=== PATIENT | female | born 1990 | race Caucasian/White ===

== ENCOUNTER 2020-01-11 07:58 | Inpatient (IN) | payer OTHER ==
[~2020-01-11 07:58] MED LIST: Bupivacaine 0.25% 10 ML SDV ONE
[2020-01-11] MEDS ORDERED: Ondansetron 4 MG/2 ML SDV IVPUSH PRN ×2 (08:21→11:02)
[2020-01-11] MEDS ORDERED: Sodium Chloride 0.9% 10 ML Syringe FLUSH PRN (08:21)
[2020-01-11] MEDS ORDERED: Nalbuphine 10 MG/ML Syringe IVPUSH PRN (08:21)
[2020-01-11] MEDS ORDERED: Oxytocin/Lactated Ringers 10 UNIT/1,000 ML BAG IV SCH ×2 (08:30)
--- NOTE | 2020-01-11 09:07 | PCM.LDHP ---
<Melissa Shaffer - Last Filed: 01/11/20 10:41> L&D History of Present Illness - General Date of Service: 01/11/20 Admit Problem/Dx: Patient Status Order with Admit Dx/Problem 01/11/20 08:21 Patient Status [ADT] Routine Admission Diagnosis/Problem Admission Diagnosis/Problem - History of Present Illness Introduction:: Gerri is a 29-year-old 3 para 2002 white female presenting at 39-2/7 weeks gestational age with an PEDRO of 01/16/2020 for elective induction of TOLAC for . Cervix upon admission is 2cm, ?? effaced, very soft, mid position, and ?? station. Procedure of induction of labor, its risks, benefits, and alterna tives of care were discussed in detail with patient and her . They appear to understand and wish to proceed. Stem Mounter history: Age at onset of menarche, length of cycles, and duration of menses are unknown. Her PEDRO of 01/16/2020 was set by a certain last menstrual period of 04/11/2019. It is supported by 1 ultrasound done during the on 09/01/2019. Patient denies any abnormal Pap smears, STIs, or other abnormalities. Her previous pregnancies include: 1. Male infant born 12/27/2012 at 40 weeks gestation. . Length of labor and child's measurements are unknown. 2. Female born 11/20/2016 at 39 weeks gestation. section for breech position. 6lbs 2oz born in [place]. Child's name is Ita. course: Patient was first seen at [facility] on 11/09/2019 at 30-2/7 weeks gestational age after recently moving from [place]. Her most recent ultrasound on 09/01/2019 showed a viable at 19-5/7 weeks gestation. Ultrasound PEDRO correlated well with her LMP. She was seen on a regular basis throughout the . Vital signs remained stable and fundal height growth was appropriate. Her weight gain was from 170 to 209 pounds for a 39 pound increase. Patient's group B strep screen is negative. She has a history of Angelito and subsequent hypothyroidism for which she is on levothyroxine sodium 100mcg oral tabs daily. She has been on tabs and omeprazole 20mg oral capsules daily. She received a flu shot on 06/23/2019 and a Tdap on 11/09/2019. Her glucose tolerance test was elevated at the 1 hour evaluation but normal at the 3 hour evaluation. Laboratory testing in : Blood is O+ with a negative antibody screen. Hemoglobin was 12.5g/dL and platelets were 256,000 in the first trimester. Rubella titer showed immunity. RPR nonreactive. Hepatitis B surface antigen and HIV assays were both negative. Chlamydia and gonorrhea testing were both negative. TSH on 05/25/2019 was 0.926mIU/L. Second trimester hemoglobin was 11.3g/dL and platelets were 229,000. Her 3 hour GTT was normal with values of 85, 130, 142, 83 over the course of 4 evaluations. TSH was 0.445 and free T4 was 0.79 on 11/09/2019. Group B strep screen was negative. - Related Data Allergies/Adverse Reactions: Allergies Allergy/AdvReac Type Severity Reaction Status Date / Time No Known Allergies Allergy Verified 01/11/20 08:11 H&P Review of Systems - Review of Systems: Review Of Systems: See Below General: Reports: No Symptoms HEENT: Reports: No Symptoms Pulmonary: Reports: No Symptoms Cardiovascular: Reports: No Symptoms Gastrointestinal: Reports: No Symptoms Genitourinary: Reports: No Symptoms Skin: Reports: No Symptoms Neurological: Reports: No Symptoms L&D Exam - Exam Exam: See Below - Vital Signs Weight: 96.615 kg - Exam Psychiatric Exam Comments: In general, the patient is a well developed, well-nourished, and pleasant female of stated age in no acute distress. On last evaluation the patient's blood pressure was 116/72, weight was 209lbs, and FHR 144. Pre- BMI was 25.8. Height is 5 feet 8 inches. Skin is warm and dry without lesions. HEENT and neck are within normal limits. Lungs are clear to auscultation with good breath sound bilaterally. Cardiovascular exam show regular rate and rhythm with no murmurs. No peripheral edema. Abdomen is gravid with fundal height of 37.5. Baby in vertex presentation. Genital digital exam as defined above. Neurologic exam is grossly within normal limits. - Patient Data Result Diagrams: 01/11/20 08:49 Orders Last 24hrs: Active Orders 24 hr Category Date Time Status Patient Status [ADT] Routine ADT 01/11/20 08:21 Active Activity as Tolerated [RC] PFP Care 01/11/20 08:21 Active Communication Order [RC] ASDIRECTED Care 01/11/20 08:21 Active Heart Tones [RC] ASDIRECTED Care 01/11/20 08:22 Active Non Stress Test [RC] PER UNIT ROUTINE Care 01/11/20 08:21 Active Notify Provider [RC] PFP Care 01/11/20 08:21 Active Notify Provider [RC] PRN Care 01/11/20 08:21 Active Peripheral IV Care [RC] . DIRECTED Care 01/11/20 08:22 Active Pump Management, Intrathecal [RC] ASDIRECTED Care 01/11/20 08:23 Active Verify Patient Consent Obtain [RC] ASDIRECTED Care 01/11/20 08:39 Active Vital Signs [RC] PER UNIT ROUTINE Care 01/11/20 08:21 Active Regular Diet [DIET] Diet 01/11/20 Breakfast Active CBC WITH AUTO DIFF [HEME] Stat Lab 01/11/20 08:49 Received CORONAVIRUS COVID-19 PCR PHL Stat Lab 01/11/20 08:17 Ordered RAPID PLASMA REAGIN,RPR [CHEM] Routine Lab 01/11/20 08:49 Received TYPE AND SCREEN [BBK] Stat Lab 01/11/20 08:49 Received Lactated Ringers [Ringers, Lactated] 1,000 ml Med 01/11/20 08:30 Active IV ASDIRECTED Nalbuphine [Nubain] Med 01/11/20 08:21 Active 10 mg IVPUSH Q2H PRN Ondansetron [Zofran] Med 01/11/20 08:21 Active 4 mg IVPUSH Q4H PRN Oxytocin/Lactated Ringers [Pitocin in LR 10 Units/1,000 Med 01/11/20 08:30 Active ML] 10 unit in 1,000 ml IV .CONTINUOUS Oxytocin/Lactated Ringers [Pitocin in LR 10 Units/1,000 Med 01/11/20 08:30 Active ML] 10 unit in 1,000 ml IV TITRATE Sodium Chloride 0.9% [Saline Flush] Med 01/11/20 08:21 Active 10 ml FLUSH ASDIRECTED PRN Electronic Heart Tones Ext w TOCO [WOMSER] Oth 01/11/20 08:21 Ordered Routine Electronic Heart Tones Internal [WOMSER] Per Unit Oth 01/11/20 08:21 Ordered Routine Peripheral IV Insertion Adult [OM.PC] Routine Oth 01/11/20 08:21 Ordered Resuscitation Status Routine Resus Stat 01/11/20 08:21 Ordered Medication Orders Lactated Ringer's (Ringers, Lactated) 1,000 mls @ 100 mls/hr IV ASDIRECTED CAROL Oxytocin/Lactated Ringer's (Pitocin In Lr 10 Units/1,000 Ml) 10 unit in 1,000 mls @ 12 mls/hr IV TITRATE CAROL; Protocol Oxytocin/Lactated Ringer's (Pitocin In Lr 10 Units/1,000 Ml) 10 unit in 1,000 mls @ 500 mls/hr IV .CONTINUOUS CAROL Nalbuphine HCl (Nubain) 10 mg IVPUSH Q2H PRN PRN Reason: Pain Ondansetron HCl (Zofran) 4 mg IVPUSH Q4H PRN PRN Reason: Nausea/Vomiting Sodium Chloride (Saline Flush) 10 ml FLUSH ASDIRECTED PRN PRN Reason: Keep Vein Open Assessment/Plan Comment:: Assessment: 1. 39-2/7 week intrauterine admitted for elective induction of TOLAC for . 2. Risk factors of include: history of x1 3. Patient is considering epidural for pain control during labor and delivery Plan: 1. Induction of labor via AROM and Pitocin. Anticipate normal spontaneous vaginal delivery. 2. Epidural PRN per patient desire. 3. IV access 4. Routine labor care <Yvon Painter - Last Filed: 01/16/20 21:19> L&D History of Present Illness - General Admit Problem/Dx: Admission Diagnosis/Problem Admission Diagnosis/Problem H&P Review of Systems - Review of Systems: Review Of Systems: See Below L&D Exam - Exam Exam: See Below - Vital Signs Vital Signs: Last Vital Signs Temp 36.2 C 01/13/20 09:02 Pulse 89 01/13/20 09:02 Resp 16 01/13/20 09:02 BP 119/61 01/13/20 09:02 Pulse Ox 99 01/13/20 09:02 - Patient Data Result Diagrams: 01/11/20 08:49
[2020-01-11] MEDS: Lactated Ringers 1,000 ML IV SCH ×2 (10:34→14:19)
[2020-01-11] MEDS ORDERED: fentaNYL 100 MCG/2 ML SDV EPIDUR PRN (11:02)
[2020-01-11] MEDS ORDERED: ePHEDrine 50 MG/ML SDV IVPUSH PRN (11:02)
[2020-01-11] MEDS ORDERED: Phenylephrine 1 MG in Sodium Chloride 0.9% 10 ML IV PRN (11:15)
[2020-01-11] MEDS ORDERED: Bupivacaine/fentaNYL/NS 100 ML Bag EPIDUR SCH (11:15)
--- NOTE | 2020-01-11 11:16 | PCM.PREANE ---
Preanesthetic Assessment - Procedure Proposed Procedure: Laboring Epidural - Anesthesia/Transfusion/Family Hx Anesthesia History: Prior Anesthesia Without Reaction Family History of Anesthesia Reaction: No Transfusion History: No Prior Transfusion(s) Intubation History: Unknown - Review of Systems General: No Symptoms Pulmonary: No Symptoms Cardiovascular: No Symptoms Gastrointestinal: No Symptoms (GERD, ), Constipation (with ) Neurological: No Symptoms Other: Reports: None, Thyroid Problems (Hypothroid/rodolfo's), Sinus Problem (seasonal allergies) - Physical Assessment NPO Status Date: 01/11/20 NPO Status Time: 10:00 Vital Signs: Last Vital Signs Temp 36.0 C L 01/11/20 08:21 Pulse 81 01/11/20 09:01 Resp 18 01/11/20 08:21 BP 121/77 01/11/20 08:21 Pulse Ox 100 01/11/20 08:21 Height: 1.73 m Weight: 96.615 kg ASA Class: 2 Mental Status: Alert & Oriented x3 Airway Class: Mallampati = 2 Dentition: Reports: Normal Dentition, Caries Thyro-Mental Finger Breadths: 3 Mouth Opening Finger Breadths: 3 ROM/Head Extension: Full Lungs: Clear to Auscultation, Normal Respiratory Effort Cardiovascular: Regular Rate, Regular Rhythm, No Murmurs - Lab Values: Laboratory Last Values WBC 8.51 K/mm3 (3.98-10.04) 01/11/20 08:49 RBC 3.87 M/mm3 (3.98-5.22) L 01/11/20 08:49 Hgb 10.5 gm/dl (11.2-15.7) L 01/11/20 08:49 Hct 33.1 % (34.1-44.9) L 01/11/20 08:49 MCV 85.5 fl (79.4-94.8) 01/11/20 08:49 MCH 27.1 pg (25.6-32.2) 01/11/20 08:49 MCHC 31.7 g/dl (32.2-35.5) L 01/11/20 08:49 RDW Std Deviation 41.5 fL (36.4-46.3) 01/11/20 08:49 Plt Count 219 K/mm3 (182-369) 01/11/20 08:49 MPV 10.4 fl (9.4-12.3) 01/11/20 08:49 Neut % (Auto) 74.7 % (34.0-71.1) H 01/11/20 08:49 Lymph % (Auto) 16.7 % (19.3-51.7) L 01/11/20 08:49 Bent % (Auto) 7.2 % (4.7-12.5) 01/11/20 08:49 Eos % (Auto) 0.7 (0.7-5.8) 01/11/20 08:49 Baso % (Auto) 0.2 % (0.1-1.2) 01/11/20 08:49 Neut # (Auto) 6.36 K/mm3 (1.56-6.13) H 01/11/20 08:49 Lymph # (Auto) 1.42 K/mm3 (1.18-3.74) 01/11/20 08:49 Bent # (Auto) 0.61 K/mm3 (0.24-0.36) H 01/11/20 08:49 Eos # (Auto) 0.06 K/mm3 (0.04-0.36) 01/11/20 08:49 Baso # (Auto) 0.02 K/mm3 (0.01-0.08) 01/11/20 08:49 SARS Virus RNA (PCR) Negative (NEGATIVE) 01/11/20 08:17 Blood Type O POSITIVE 01/11/20 08:49 Gel Antibody Screen Negative 01/11/20 08:49 Above labs reviewed and noted and within acceptable ranges to proceed with epidural if desired. - Allergies Allergies/Adverse Reactions: Allergies Allergy/AdvReac Type Severity Reaction Status Date / Time No Known Allergies Allergy Verified 01/11/20 08:11 - Anesthesia Plan Pre-Op Medication Ordered: None - Acknowledgements Anesthesia Type Planned: Epidural Pt an Appropriate Candidate for the Planned Anesthesia: Yes Alternatives and Risks of Anesthesia Discussed w Pt/Guardian: Yes Pt/Guardian Understands and Agrees with Anesthesia Plan: Yes PreAnesthesia Questionnaire Genitourinary History: Reports: None [employer] History: Reports: - Past Surgical History Female Surgical History: Reports: Section - CURRENT (IN HOUSE) MEDS Current Meds: Current Medications Ephedrine Sulfate (Ephedrine Sulfate) 5 mg IVPUSH ASDIRECTED PRN PRN Reason: Hypotension Fentanyl (Sublimaze) 100 mcg EPIDUR Q3H PRN PRN Reason: Pain Fentanyl/Bupivacaine HCl (Fentanyl/Bupivacaine/Ns 2 Mcg-0.125% 100 Ml) 100 ml EPIDUR ASDIRECTED CAROL Lactated Ringer's (Ringers, Lactated) 1,000 mls @ 100 mls/hr IV ASDIRECTED CAROL Last Admin: 01/11/20 10:34 Dose: 100 mls/hr Documented by: Oxytocin/Lactated Ringer's (Pitocin In Lr 10 Units/1,000 Ml) 10 unit in 1,000 mls @ 12 mls/hr IV TITRATE CAROL; Protocol Last Admin: 01/11/20 10:34 Dose: 2 munits/min, 12 mls/hr Documented by: Oxytocin/Lactated Ringer's (Pitocin In Lr 10 Units/1,000 Ml) 10 unit in 1,000 mls @ 500 mls/hr IV .CONTINUOUS CAROL Phenylephrine HCl 1 mg/ Sodium (Chloride) 10.1 mls @ 1 mls/sec IV TITRATE PRN; Protocol PRN Reason: SEE COMMENT Nalbuphine HCl (Nubain) 10 mg IVPUSH Q2H PRN PRN Reason: Pain Ondansetron HCl (Zofran) 4 mg IVPUSH Q4H PRN PRN Reason: Nausea/Vomiting Ondansetron HCl (Zofran) 4 mg IVPUSH ONETIME PRN PRN Reason: Nausea/Vomiting Sodium Chloride (Saline Flush) 10 ml FLUSH ASDIRECTED PRN PRN Reason: Keep Vein Open
[2020-01-11] MEDS ORDERED: Acetaminophen 325 MG Tab PO PRN (13:39)
--- NOTE | 2020-01-11 18:06 | PCM.SN.2 ---
- Free Text/Narrative Note: Delivery note: Gerri is a 29-year-old 3 para 2002 white female presenting at 39-2/7 weeks gestational age with an PEDRO of 01/16/2020 for elective induction of TOLAC for . The procedure, risks, benefits, complications as far as separation uterine scar, compromise, bleeding, possible need for emergent section all discussed in detail with patient as were other potential risks. She appeared to understand, wish to proceed and signed a consent. Patient underwent artificial rupture membranes and induction with Pitocin augmentation ad somewhat later time. She slowly progressed to 4 cm and more rapidly progressed to complete cervical dilation. She had an epidural placed for labor analgesia. At 1537 hrs. on 01/11/2020 the patient pushed 2 contractions and delivered a viable, jerry, male with Apgars of 8 and 9, a weight of 3040 g (6 pounds 11.2 ounces), Apgars of 8 and 9 and a length of 20.0 inches. Baby was placed on mom's abdomen. Nose and mouth were bulb suctioned. Baby was dried with a warm blanket. Pitocin was increased to 500 mL per hour per protocol to facilitate increased uterine tone and decreased likelihood of bleeding. The umbilical cord was allowed to pulsate 2-3 minutes. It was then clamped and cut by the baby's father. The umbilical cord had 3 blood vessels present within it. Cord blood was obtained. Patient had a small second-degree perineal laceration which was repaired in routine fashion using 3-0 Monocryl suture in a running traditional stitch. Patient tolerated this well. Her labor analgesia analgesia provided good anesthesia for the perineal repair. The placenta delivered at 1541 hrs. in a Emmanuel presentation, appeared intact and complete and was discarded per patient desire. Estimated blood loss was 100 mL. Patient plans to breast-feed. Condition: Good.
[2020-01-11] MEDS ORDERED: Witch Hazel Medicated Pads 40/Jar TOP PRN (18:10)
[2020-01-11] MEDS: Ibuprofen 600 MG Tab PO PRN ×2 (18:18→22:07)
[2020-01-11] MEDS: Benzocaine/Menthol 20%-0.5% Spray 56 GM Canister TOP PRN (18:19)
[2020-01-11] MEDS: Acetaminophen 325 MG Tab PO PRN (20:18)
[2020-01-11] MEDS: Docusate Sodium 100 MG Cap PO PRN (22:06)
[2020-01-12] MEDS: Acetaminophen 325 MG Tab PO PRN ×4 (01:25→23:01)
[2020-01-12] MEDS: Ibuprofen 600 MG Tab PO PRN ×3 (04:39→20:12)
[2020-01-12] MEDS ORDERED: Levothyroxine 100 MCG Tab PO SCH (06:00)
[2020-01-12] MEDS: Benzocaine/Menthol 20%-0.5% Spray 56 GM Canister TOP PRN (12:27)
[2020-01-12] MEDS: Docusate Sodium 100 MG Cap PO PRN (23:01)
[2020-01-13] MEDS: Ibuprofen 600 MG Tab PO PRN ×2 (00:44→07:23)
[2020-01-13] MEDS: Acetaminophen 325 MG Tab PO PRN (04:21)
--- NOTE | 2020-01-13 06:22 | PCM.SN.2 ---
- Free Text/Narrative Note: note for 01/12/2020: note: day #1 Patient is doing well in the period. Minimal lochia, voiding well, ambulated without problems. Nursing without concerns. Patient is afebrile, vital signs are stable Abdomen is flat, soft, uterus is below the umbilicus and is firm and nontender. Legs are nontender. Assessment: recovery going well. Plan: Routine care. Patient be discharged home within the next 24-48 hours.
--- NOTE | 2020-01-13 06:26 | PCM.DCSUM1 ---
Discharge Summary - Hospital Course Free Text/Narrative:: Gerri is a 29-year-old 3 para 2002 white female presenting to the hospital on 01/11/2020 at 39-2/7 weeks gestational age with an PEDRO of 01/16/2020 for elective induction of TOLAC for . The procedure, risks, benefits, complications as far as separation uterine scar, compromise, bleeding, possible need for emergent section all discussed in detail with patient as were other potential risks. She appeared to understand, wish to proceed and signed a consent. Patient underwent artificial rupture membranes and induction with Pitocin augmentation ad somewhat later time. She slowly progressed to 4 cm and more rapidly progressed to complete cervical dilation. She had an epidural placed for labor analgesia. At 1537 hrs. on 01/11/2020 the patient pushed 2 contractions and delivered a viable, jerry, male infant with Apgars of 8 and 9, a weight of 3040 g (6 pounds 11.2 ounces), Apgars of 8 and 9 and a length of 20.0 inches. Baby was placed on mom's abdomen. Nose and mouth were bulb suctioned. Baby was dried with a warm blanket. Pitocin was increased to 500 mL per hour per protocol to facilitate increased uterine tone and decreased likelihood of bleeding. The umbilical cord was allowed to pulsate 2-3 minutes. It was then clamped and cut by the baby's father. The umbilical cord had 3 blood vessels present within it. Cord blood was obtained. Patient had a small second-degree perineal laceration which was repaired in r outine fashion using 3-0 Monocryl suture in a running traditional stitch. Patient tolerated this well. Her labor analgesia analgesia provided good anesthesia for the perineal repair. The placenta delivered at 1541 hrs. in a Emmanuel presentation, appeared intact and complete and was discarded per patient desire. Estimated blood loss was 100 mL. patient is doing very well. She is ambulating well, has had minimal lochia. She is nursing without problems and voiding without concerns. She is desiring discharge home. Final diagnosis: 1. 39-2/7 week intrauterine , successful Condition: Good. Diagnosis: Stroke: No - Discharge Data Discharge Date: 01/13/20 Discharge Disposition: Home, Self-Care 01 Condition: Good - Referral to Home Health Primary Care Physician: Yvon Painter MD - Patient Instructions Diet: Regular Diet as Tolerated (Nursing diet was increased calories and calcium as recommended) Activity: As Tolerated ([place] or tampons until bleeding resolves) Driving: May Drive Today Showering/Bathing: May Shower (May take a bath) Notify Provider of: Fever, Increased Pain, Swelling and Redness, Nausea and/or Vomiting - Discharge Plan Home Medications: Home Meds Levothyroxine [Synthroid] 1 tab PO DAILY 01/11/20 [History] Acetaminophen [Tylenol] 650 mg PO Q4H PRN tablet 01/13/20 [Rx] Ibuprofen [Motrin] 600 mg PO Q4H PRN tablet 01/13/20 [Rx] Referrals: Yvon Painter MD [Primary Care Provider] - (Return to [facility] weeks.) - Discharge Summary/Plan Comment DC Time >30 min.: No Discharge Summary/Plan Comment: Discharge instructions: 1. Discharge home 2. Diet, activity and follow-up discussed with patient. Recommend nursing diet with increased calories and calcium. 3. Precautions given concern increased pain, bleeding, temperature, signs/symptoms of DVT/PE. 4. Medications per home medication was printed, discussed with and given to the patient. 5. Return to clinic-Dr. Painter[facility] in 2 weeks. Diagnosis: Term -delivered Condition: Good - Patient Data Vitals - Most Recent: Last Vital Signs Temp 36.4 C 01/13/20 04:35 Pulse 70 01/13/20 04:35 Resp 14 01/13/20 04:35 BP 100/61 01/13/20 04:35 Pulse Ox 99 01/13/20 04:35 Weight - Most Recent: 96.615 kg I&O - Last 24 hours: Intake & Output 01/12/20 01/12/20 01/13/20 14:59 22:59 06:59 Intake Total 240 320 Balance 240 320 Lab Results - Last 24 hrs: Laboratory Results - last 24 hr 01/11/20 Range/Units 08:49 RPR Non-reactive (NONREACTIVE) Med Orders - Current: Current Medications Acetaminophen (Tylenol) 650 mg PO Q4H PRN PRN Reason: mild pain or fever Last Admin: 01/13/20 04:21 Dose: 650 mg Documented by: Benzocaine/Menthol (Dermoplast Pain Relief [place]) 0 gm TOP ASDIRECTED PRN PRN Reason: Perineal Comfort Measure Last Admin: 01/12/20 12:27 Dose: 1 can Documented by: Docusate Sodium (Colace) 100 mg PO BID PRN PRN Reason: Constipation Last Admin: 01/12/20 23:01 Dose: 100 mg Documented by: Ibuprofen (Motrin) 600 mg PO Q4H PRN PRN Reason: Mild pain or fever Last Admin: 01/13/20 00:44 Dose: 600 mg Documented by: Anamaria Urrutia ([place]) 1 pad TOP ASDIRECTED PRN PRN Reason: Perineal Comfort Measure Last Admin: 01/11/20 18:19 Dose: 1 container Documented by: Discontinued Medications Acetaminophen (Tylenol) 650 mg PO Q4H PRN PRN Reason: Headache/Pain Last Admin: 01/11/20 13:52 Dose: 650 mg Documented by: Bupivacaine HCl (Sensorcaine-Mpf 0.25%) 10 ml .ROUTE .[facility] Stop: 01/11/20 00:01 Ephedrine Sulfate (Ephedrine Sulfate) 5 mg IVPUSH ASDIRECTED PRN PRN Reason: Hypotension Fentanyl (Sublimaze) 100 mcg EPIDUR Q3H PRN PRN Reason: Pain Last Admin: 01/11/20 13:10 Dose: 100 mcg Documented by: Fentanyl/Bupivacaine HCl (Fentanyl/Bupivacaine/Ns 2 Mcg-0.125% 100 Ml) 100 ml EPIDUR ASDIRECTED CAROL Last Admin: 01/11/20 13:11 Dose: 100 ml Documented by: Lactated Ringer's (Ringers, Lactated) 1,000 mls @ 100 mls/hr IV ASDIRECTED CAROL Last Admin: 01/11/20 14:19 Dose: 100 mls/hr Documented by: Oxytocin/Lactated Ringer's (Pitocin In Lr 10 Units/1,000 Ml) 10 unit in 1,000 mls @ 12 mls/hr IV TITRATE CAROL; Protocol Last Titration: 01/11/20 15:40 Dose: 500 munits/min, 3,000 mls/hr Documented by: Oxytocin/Lactated Ringer's (Pitocin In Lr 10 Units/1,000 Ml) 10 unit in 1,000 mls @ 500 mls/hr IV .CONTINUOUS CAROL Phenylephrine HCl 1 mg/ Sodium (Chloride) 10.1 mls @ 1 mls/sec IV TITRATE PRN; Protocol PRN Reason: SEE COMMENT Levothyroxine Sodium (Synthroid) 100 mcg PO ACBREAKFAST CAROL Nalbuphine HCl (Nubain) 10 mg IVPUSH Q2H PRN PRN Reason: Pain Ondansetron HCl (Zofran) 4 mg IVPUSH Q4H PRN PRN Reason: Nausea/Vomiting Ondansetron HCl (Zofran) 4 mg IVPUSH ONETIME PRN PRN Reason: Nausea/Vomiting Sodium Chloride (Saline Flush) 10 ml FLUSH ASDIRECTED PRN PRN Reason: Keep Vein Open
== END 2020-01-13 11:18 | disposition home or self-care (01) | DRG 807 ==
LOC: JD.OB 07:58 → OBSVTOIN 15:37 → JD.OB 15:37
PROVIDERS: ADMIT Obstetrics & Gynecology; ATTEND Obstetrics & Gynecology
PROC: 10E0XZZ Delivery of Products of Conception, External Approach (ICD-10-PCS; principal; 2020-01-11)
PROC: 0KQM0ZZ Repair Perineum Muscle, Open Approach (ICD-10-PCS; 2020-01-11)
PROC: 10907ZC Drainage of Amniotic Fluid, Therapeutic from Products of Conception, Via Natural or Artificial Opening (ICD-10-PCS; 2020-01-11)
PROC: 3E0R3BZ Introduction of Anesthetic Agent into Spinal Canal, Percutaneous Approach (ICD-10-PCS; 2020-01-11)
PROC: 00HU33Z Insertion of Infusion Device into Spinal Canal, Percutaneous Approach (ICD-10-PCS; 2020-01-11)
DX: O34.211 Maternal care for low transverse scar from previous cesarean delivery (principal); Z37.0 Single live birth; Z3A.39 39 weeks gestation of pregnancy; O70.1 Second degree perineal laceration during delivery
CPT/HCPCS: 01967; 36415; 51702; 59025; 59409; 85025; 86592; 86850; 86900; 86901; A9270-GY; J2590; J3010; J3490; J7120; U0002

== ENCOUNTER 2021-07-01 05:15 | Inpatient (IN) | payer OTHER ==
--- NOTE | 2021-07-01 20:17 | PCM.LDHP ---
L&D History of Present Illness - General Date of Service: 07/01/21 Admit Problem/Dx: Admission Diagnosis/Problem Admission Diagnosis/Problem 07/01/21 20:05 Gerri is a 30-year-old 4 para 3-0-0-3 female who was admitted on the evening of 07/01/2021 at 39 weeks gestational age with an PEDRO of 07/08/2021 for elective induction of labor. Source of Information: Patient History Limitations: Reports: No Limitations - History of Present Illness Introduction:: Gerri is a 30-year-old 4 para 3-0-0-3 female who was admitted on the evening of 07/01/2021 at 39 weeks gestational age with an PEDRO of 07/08/2021 for elective induction of labor. The procedure, risk, benefits, alternatives of care including allowing for natural onset of labor all discussed in detail with patient. She appears understand and wishes to proceed. Plan is to proceed with Pitocin induction to be followed by AROM when possible. 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 Patient had menarche at approximately age 13. Cycles are somewhat irregular. PEDRO of 07/08/2021 was determined by An early ultrasound done at 6-1/7 weeks gestational age. That is supported by 2 follow-up ultrasounds. Patient denies any STIs. Denies any abnormal Pap smears. Her obstetric history includes the followin. 12/27/2012 at 40 weeks gestational age 2. Female infant born 11/20/2016 at 39 weeks gestational age by a section done for breech presentationepidural used for anesthesia-delivered in [place]. Child's name is Ita. 3. Male born 01/11/2000 6:20 hours of labor6 pound 12 ounce born via / with epidural analgesia. Born at [facility] in [place]. Child's name is Max. course: Ultrasound 6-1/7 weeks gestational age used for determination of final PEDRO of 07/08/2021. Patient was seen on a very regular basis throughout the . Her vital signs remained stable throughout the course. Her weight gain was from 197 pounds to 218.4 pounds for 21.4 pound increase. Fundal height growth has been appropriate. Patient desires an epidural in labor. She is group B strep negative. She is hypothyroid on medications and has been clinically euthyroid throughout the . Her thyroid medications are managed by Dr. Staton, endocrinology, at [facility] in [place], [place]. 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 She plans to breast-feed. Prequel noninvasive screen showed very low risk for trisomy 21, 18 and 13. Patient has received both doses of the med during the COVID-19 vaccine as of 02/28/2021. She had her influenza immunization on 05/01/2021 along with her Tdap on the same day. She is rubella immune. Laboratory testing: Blood is O+ with a negative antibody screen. First hemoglobin was 13.0 g/dL and platelets are 294,000. Rubella titer shows immunity. RPR is nonreactive. B surface antigen and HIV assays were negative. Media, gonorrhea and HCV antibody were all negative. TSH on 12/11/2020 was 2.0 milliunits/L. Second trimester labs showed hemoglobin of 11.7 g/dL which time she was started on ferrous sulfate. Platelets are 206,000. Diabetic screening test was 128. Group B strep screen 06/12/2021 was negative. Follow-up thyroid function studies on 06/21/2021 were within normal limits with the TSH of 0.645 and free T4 of 0.86. Allergies: None Medications: 1. Ferrous sulfate 325 mg p.o. daily 2. vitamins 1 daily 3. Levothyroxine sodium 100 mcg p.o. daily 4. Claritin tabs 10 mg p.o. daily as needed for allergies. 5. Probiotic oral tablet chewables daily. Past medical history: 1. 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 GERD on medications as needed 3. Infertility with treatment with letrozole. Past surgical history: 1. with her second child 2017 for breech presentation. She has successfully and desires to attempt trial of labor after section for attempt. Family history: Mother is alive and well but with hypertension. Father is alive and well. 2 brothers alive and well. 1 sister alive and well. Maternal grandmother is alive but with dementia. Maternal grandfather is age 75 from lung cancerwas a smoker. Paternal grandmother is alive but with hypertension. Paternal grandfather is alive with type 2 diabetes. The patient has no family history of cancer, bleeding or blood clotting disorders, anesthesia related issues or related concerns. 3 maternal aunts with Angelito's thyroiditis. 3 paternal aunts with polycystic ovarian syndrome. Paternal grandfather should be noted has a pacemaker. Social history: Patient is . She is a homemaker. She lives in [facility] with her family. Her is Sary. She does not use any significant muscle drugs or tobacco. Review of systems: Review of systems: In general patient has no complaints. Baby has been active and no significant contractions have been reported. Skin: Negative Lungs: No infectious symptoms or shortness of breath Cardiovascular: No chest pain or exercise intolerance Breasts: changes only. No lumps, changes in size, pain, dimpling, discharge or axillary or supraclavicular concerns. GI: Negative : Changes associated with . Musculoskeletal: Negative Neurological: Negative Physical exam: In general the patient is well-developed, well-nourished, pleasant female of stated age in no acute distress. Skin is warm dry without lesions. HEENT, neck and back within normal limits. Lungs are clear with good breath sounds in all lung akers. Cardiovascular exam shows regular and rhythm without murmurs. Breast exam deferred have been done at first visit and found to be normal. Is not repeated at this time. Patient does plan to breast-feed. Abdomen is gravid with last fundal height in clinic on 06/28/2021 at 39.5 cm. Baby in vertex presentation by Sae maneuvers and by cervical exam. Genital per digital evaluation on 06/28/2021 shows cervix to be 2 cm plus, 80% effaced, very soft, -3 station, mid position. Cephalic presentation confirmed Extremities shows trace edema bilateral lower extremities Neurological exam is grossly within normal limits. - Related Data Allergies/Adverse Reactions: Allergies Allergy/AdvReac Type Severity Reaction Status Date / Time No Known Allergies Allergy Verified 01/11/20 08:11 Home Medications: Home Meds Levothyroxine [Synthroid] 1 tab PO DAILY 01/11/20 [History] Acetaminophen [Tylenol] 650 mg PO Q4H PRN tablet 01/13/20 [Rx] Ibuprofen [Motrin] 600 mg PO Q4H PRN tablet 01/13/20 [Rx] Past Medical History Genitourinary History: Reports: None [employer] JOIST History: Reports: - Past Surgical History Female Surgical History: Reports: Section Social & Family History - Family History Family Medical History: No Pertinent Family History HEENT: Reports: None Cardiac: Reports: Hypertension Neurological: Reports: Dementia Endocrine/Metabolic: Reports: Hypothyroidism Hematologic: Reports: None Oncologic: Reports: Lung - Caffeine Use Caffeine Use: Reports: Soda Caffeine Use Comment: 1-2 per week H&P Review of Systems - Review of Systems: Review Of Systems: See Below L&D Exam - Exam Exam: See Below - Problem List (1) 39 weeks gestation of SNOMED Code(s): 45633410 ICD Code: Z3A.39 - 39 WEEKS GESTATION OF Status: Acute (2) Hypothyroidism SNOMED Code(s): 88104281 ICD Code: E03.9 - HYPOTHYROIDISM, UNSPECIFIED Status: Acute (3) History of Angelito thyroiditis SNOMED Code(s): 324212266 ICD Code: Z86.39 - PERSONAL HISTORY OF ENDO, NUTRITIONAL AND METABOLIC DISEASE Status: Acute (4) Previous section SNOMED Code(s): 777208841 ICD Code: Z98.891 - HISTORY OF UTERINE SCAR FROM PREVIOUS SURGERY Status: Acute (5) Anemia affecting SNOMED Code(s): 78555167 ICD Code: O99.019 - ANEMIA COMPLICATING , UNSPECIFIED TRIMESTER Status: Acute Problem List Initiated/Reviewed/Updated: Yes Assessment/Plan Comment:: 1Alondra Talley is a 30-year-old 4 para 3-0-0-3 female who was admitted on the evening of 07/01/2021 at 39 weeks gestational age with an PEDRO of 07/08/2021 for elective induction of labor Procedure, risk, benefits, limitations, follow- up and alternatives care including allowing for natural onset of labor discussed in detail with patient. She appears understand and wishes to proceed 2. Patient plans to breast-feed. 3. Group B strep screen is negative. 4. Risk factors include history of previous with a successful following, hypothyroidism on replacementclinically euthyroid 5. Patient has received both doses of Materna COVID-19 vaccine 6. Prequel noninvasive screen was low risk for trisomy 21, 18 and 13. 7. Patient is desiring an epidural in labor and delivery 8. History of Angelito's thyroiditis leading to her hypothyroidism. Plan: 1. Pitocin induction of labor followed by AROM when possible 2. Will electronically monitor heart tones and contractions. 3. Support breast-feeding decision 4. Epidural as desired by patient 5. Back precautions to include day of labs, alerting anesthesia and surgery that patient is in labor and delivery, appropriate consents for both trial of labor after section for an attempt at vaginal after section and repeat section if needed, near continuous monitoring. 6. DVT prophylaxis with SCDs when patient has received epidural 7. Labs upon admission consist of COVID-19 test, CBC, and screen and RPR per protocol. 8. Anticipate /.
[2021-07-01] MEDS ORDERED: Oxytocin/Lactated Ringers 10 UNIT/1,000 ML BAG IV SCH ×2 (21:00)
[2021-07-01] MEDS ORDERED: Sodium Chloride 0.9% 10 ML Syringe FLUSH PRN (21:00)
[2021-07-01] MEDS ORDERED: Nalbuphine 10 MG/1 ML Vial IVPUSH PRN (21:00)
[2021-07-01] MEDS: Lactated Ringers 1,000 ML IV SCH (22:06)
--- NOTE | 2021-07-01 22:12 | PCM.PREANE ---
Preanesthetic Assessment - Procedure Proposed Procedure: Labor epidural - Anesthesia/Transfusion/Family Hx Anesthesia History: Prior Anesthesia Without Reaction Family History of Anesthesia Reaction: No Transfusion History: No Prior Transfusion(s) Intubation History: Unknown - Review of Systems General: No Symptoms Pulmonary: Cough (chronic cough) Cardiovascular: No Symptoms Gastrointestinal: Abdominal Pain (uterine contractions) Neurological: No Symptoms Other: Reports: Thyroid Problems (hypothyroidism) - Physical Assessment NPO Status Date: 07/01/21 NPO Status Time: 16:00 Vital Signs: BP 124/65 HR 88 RR 16 95% RA 97.6 Height: 1.73 m Weight: 98.43 kg ASA Class: 2 Mental Status: Alert & Oriented x3 Airway Class: Mallampati = 2 Thyro-Mental Finger Breadths: 3 Mouth Opening Finger Breadths: 3 ROM/Head Extension: Full Lungs: Clear to Auscultation, Normal Respiratory Effort Cardiovascular: Regular Rate, Regular Rhythm, No Murmurs - Lab Values: Laboratory Last Values WBC 7.37 K/mm3 (3.98-10.04) 07/01/21 21:50 RBC 4.12 M/mm3 (3.98-5.22) 07/01/21 21:50 Hgb 11.9 gm/dl (11.2-15.7) 07/01/21 21:50 Hct 35.9 % (34.1-44.9) 07/01/21 21:50 MCV 87.1 fl (79.4-94.8) 07/01/21 21:50 MCH 28.9 pg (25.6-32.2) 07/01/21 21:50 MCHC 33.1 g/dl (32.2-35.5) 07/01/21 21:50 RDW Std Deviation 42.9 fL (36.4-46.3) 07/01/21 21:50 Plt Count 209 K/mm3 (182-369) 07/01/21 21:50 MPV 10.2 fl (9.4-12.3) 07/01/21 21:50 Neut % (Auto) 63.7 % (34.0-71.1) 07/01/21 21:50 Lymph % (Auto) 26.5 % (19.3-51.7) 07/01/21 21:50 [place] % (Auto) 8.1 % (4.7-12.5) 07/01/21 21:50 Eos % (Auto) 1.1 (0.7-5.8) 07/01/21 21:50 Baso % (Auto) 0.1 % (0.1-1.2) 07/01/21 21:50 Neut # (Auto) 4.69 K/mm3 (1.56-6.13) 07/01/21 21:50 Lymph # (Auto) 1.95 K/mm3 (1.18-3.74) 07/01/21 21:50 [place] # (Auto) 0.60 K/mm3 (0.24-0.36) H 07/01/21 21:50 Eos # (Auto) 0.08 K/mm3 (0.04-0.36) 07/01/21 21:50 Baso # (Auto) 0.01 K/mm3 (0.01-0.08) 07/01/21 21:50 - Allergies Allergies/Adverse Reactions: Allergies Allergy/AdvReac Type Severity Reaction Status Date / Time No Known Allergies Allergy Verified 01/11/20 08:11 - Acknowledgements Anesthesia Type Planned: Epidural Pt an Appropriate Candidate for the Planned Anesthesia: Yes Alternatives and Risks of Anesthesia Discussed w Pt/Guardian: Yes Pt/Guardian Understands and Agrees with Anesthesia Plan: Yes PreAnesthesia Questionnaire HEENT History: Reports: Impaired Vision Cardiovascular History: Reports: None Respiratory History: Reports: Bronchitis, Recurrent Gastrointestinal History: Reports: GERD Genitourinary History: Reports: None PLANT ENGINEER History: Reports: Musculoskeletal History: Reports: None Neurological History: Reports: None Psychiatric History: Reports: None Endocrine/Metabolic History: Reports: Hypothyroidism ([place]) Hematologic History: Reports: None Immunologic History: Reports: None Oncologic (Cancer) History: Reports: None Dermatologic History: Reports: None - Past Surgical History HEENT Surgical History: Reports: Oral Surgery Female Surgical History: Reports: Section - SUBSTANCE USE Tobacco Use Status *Q: Never Tobacco User Tobacco Use Within Last Twelve Months: No Second Hand Smoke Exposure: No Days Per Week of Alcohol Use: 0 Number of Drinks Per Day: 0 Total Drinks Per Week: 0 Recreational Drug Use History: No - HOME MEDS Home Medications: Home Meds Levothyroxine [Synthroid] 1 tab PO DAILY 01/11/20 [History] Acetaminophen [Tylenol] 650 mg PO Q4H PRN tablet 01/13/20 [Rx] Ibuprofen [Motrin] 600 mg PO Q4H PRN tablet 01/13/20 [Rx] - CURRENT (IN HOUSE) MEDS Current Meds: Current Medications Oxytocin/Lactated Ringer's (Pitocin In Lr 10 Units/1,000 Ml) 10 unit in 1,000 mls @ 100 mls/hr IV .CONTINUOUS CAROL Oxytocin/Lactated Ringer's (Pitocin In Lr 10 Units/1,000 Ml) 10 unit in 1,000 mls @ 12 mls/hr IV TITRATE CAROL; Protocol Lactated Ringer's (Ringers, Lactated) 1,000 mls @ 100 mls/hr IV ASDIRECTED CAROL Nalbuphine HCl (Nalbuphine 10 Mg/1 Ml Vial) 10 mg IVPUSH Q2H PRN PRN Reason: Pain Sodium Chloride (Sodium Chloride 0.9% 10 Ml Syringe) 10 ml FLUSH ASDIRECTED PRN PRN Reason: Keep Vein Open
[2021-07-01] MEDS ORDERED: fentaNYL 100 MCG/2 ML SDV EPIDUR PRN (22:28)
[2021-07-01] MEDS ORDERED: Bupivacaine/fentaNYL/NS 100 ML Bag EPIDUR PRN (22:28)
[2021-07-01] MEDS ORDERED: diphenhydrAMINE 50 MG/ML SDV IVPUSH PRN (22:28)
[2021-07-01] MEDS ORDERED: ePHEDrine 50 MG/ML SDV IVPUSH PRN (22:28)
[2021-07-02] MEDS ORDERED: Bupivacaine 0.25% 10 ML SDV ONE
[2021-07-02] MEDS: Lactated Ringers 1,000 ML IV SCH (03:18)
--- NOTE | 2021-07-02 05:40 | PCM.SN.2 ---
- Free Text/Narrative Note: Delivery note: Stage I: Gerri is a 30-year-old 4 now para 4-0-0-4 female who was admitted on the evening of 07/01/2021 at 39 and 0/7 weeks gestational age with an PEDRO of 07/08/2021 for elective induction of labor. Patient had a previous section done for breech presentation but had successfully . was discussed in detail with patient including risk, benefits, alternatives of care including repeat section. She appeared to understand, wish to proceed and signed consents. Preparatory measures were put in place such as having consent signed for trial of labor after section for an attempt at vaginal after section, preoperative labs were drawn, anesthesia and surgery were informed of the patient's labor, heart tones were near continuously monitored. Labor was initiated with Pitocin and at approximately 0330 hrs. on 07/02/2021 AROM with resultant clear amniotic fluid was accomplished. At that time patient was 5 cm, 100% effaced, -1 station, anterior and very soft. Cephalic presentation noted. heart tones were reassuring. Patient had had an epidural placed with good results. She progressed quickly to complete cervical dilation by approximately 0500 hrs. heart tones remained reassuring throughout the labor course. Stage II: Gerri delivered a viable, jerry, male infant with Apgars of 9 and 9, a weight of 3590g , (7 pounds, 15 ounces) and a length of 20.5 inches in a direct occiput anterior position. There is external restitution of the head. No nuchal cord was noted. The shoulders were then delivered gently with downward and upward traction. The baby is completely delivered and placed on mom's abdomen. Baby was dried with warm blanket. Nose and mouth were bulb suction. Pitocin was increased to 500 cc an hour to facilitate increase in uterine tone and decrease likelihood of bleeding. The cord was allowed to pulsate for approximately 3-4 minutes and then was clamped x2 and cut by the baby's father. Cord blood was obtained. The umbilical cord had 3 vessels. Stage III: The placenta delivered at 0521 hrs. in a Emmanuel presentation, it appeared intact and complete and was discarded per patient desire. Patient plans to breast-feed. Estimated blood loss was 100 cc. Condition: Good.
[2021-07-02] MEDS ORDERED: Levothyroxine 100 MCG Tab PO SCH ×2 (06:00→20:00)
[2021-07-02] MEDS ORDERED: Docusate Sodium 100 MG Cap PO PRN (07:43)
[2021-07-02] MEDS ORDERED: Benzocaine/Menthol 20%-0.5% Spray 78 GM Cannister TOP PRN (07:43)
[2021-07-02] MEDS ORDERED: Witch Hazel Medicated Pads 40/Jar TOP PRN (07:43)
[2021-07-02] MEDS: Ibuprofen 600 MG Tab PO PRN ×2 (09:00→18:20)
[2021-07-02] MEDS: Prenatal Multivitamin with Calcium/Folic Acid/Iron Tab PO SCH (09:01)
[2021-07-02] MEDS: Acetaminophen 325 MG Tab PO PRN ×2 (14:27→21:55)
[2021-07-02] MEDS ORDERED: Loratadine 10 MG Tab PO SCH (20:00)
[2021-07-03] MEDS: Ibuprofen 600 MG Tab PO PRN ×3 (00:21→12:42)
--- NOTE | 2021-07-03 07:17 | PCM.DCSUM1 ---
Discharge Summary - Hospital Course Free Text/Narrative:: Stage I: Gerri is a 30-year-old 4 now para 4-0-0-4 female who was admitted on the evening of 07/01/2021 at 39 and 0/7 weeks gestational age with an PEDRO of 07/08/2021 for elective induction of labor. Patient had a previous section done for breech presentation but had successfully . was discussed in detail with patient including risk, benefits, alternatives of care including repeat section. She appeared to understand, wish to proceed and signed consents. Preparatory measures were put in place such as having consent signed for trial of labor after section for an attempt at vaginal after section, preoperative labs were drawn, anesthesia and surgery were informed of the patient's labor, heart tones were near continuously monitored. Labor was initiated with Pitocin and at approximately 0330 hrs. on 07/02/2021 AROM with resultant clear amniotic fluid was accomplished. At that time patient was 5 cm, 100% effaced, -1 station, anterior and very soft. Cephalic presentation noted. heart tones were reassuring. Patient had had an epidural placed with good results. She progressed quickly to complete cervical dilation by approximately 0500 hrs. heart tones remained reassuring throughout the labor course. Stage II: Gerri delivered a viable, jerry, male infant with Apgars of 9 and 9, a weight of 3590g , (7 pounds, 15 ounces) and a length of 20.5 inches in a direct occiput anterior position. There is external restitution of the head. No nuchal cord was noted. The shoulders were then delivered gently with downward and upward traction. The baby is completely delivered and placed on mom's abdomen. Baby was dried with warm blanket. Nose and mouth were bulb suction. Pitocin was increased to 500 cc an hour to facilitate increase in uterine tone and decrease likelihood of bleeding. The cord was allowed to pulsate for approximately 3-4 minutes and then was clamped x2 and cut by the baby's father. Cord blood was obtained. The umbilical cord had 3 vessels. Stage III: The placenta delivered at 0521 hrs. in a Emmanuel presentation, it appeared intact and complete and was discarded per patient desire. Patient plans to breast-feed. Estimated blood loss was 100 cc. patient is doing very well. She is nursing without problems, has minimal lochia. She is ambulating well and has been voiding without concerns. She is desiring discharge home today. Discharge condition: Good. Diagnosis: Stroke: No - Discharge Data Discharge Date: 07/03/21 Discharge Disposition: Home, Self-Care 01 Condition: Good - Referral to Home Health Primary Care Physician: Yvon Painter MD - Discharge Diagnosis/Problem(s) (1) 39 weeks gestation of SNOMED Code(s): 68966139 ICD Code: Z3A.39 - 39 WEEKS GESTATION OF Status: Acute Current Visit: No (2) Hypothyroidism SNOMED Code(s): 44870730 ICD Code: E03.9 - HYPOTHYROIDISM, UNSPECIFIED Status: Acute Current Visit: No (3) History of Angelito thyroiditis SNOMED Code(s): 900364781 ICD Code: Z86.39 - PERSONAL HISTORY OF ENDO, NUTRITIONAL AND METABOLIC DISEASE Status: Acute Current Visit: No (4) Previous section SNOMED Code(s): 528599579 ICD Code: Z98.891 - HISTORY OF UTERINE SCAR FROM PREVIOUS SURGERY Status: Acute Current Visit: No (5) Anemia affecting SNOMED Code(s): 93441747 ICD Code: O99.019 - ANEMIA COMPLICATING , UNSPECIFIED TRIMESTER Status: Acute Current Visit: No - Patient Instructions Diet: Usual Diet as Tolerated (Nursing diet with increased calories and calcium is recommended) Activity: As Tolerated (No intercourse or tampons until bleeding resolves) Driving: May Drive Today Showering/Bathing: May Shower (May take a bath) Notify Provider of: Fever, Increased Pain, Swelling and Redness, Drainage - Discharge Plan Home Medications: Home Meds Levothyroxine [Synthroid] 1 tab PO DAILY 01/11/20 [History] Ferrous Sulfate 1 tab PO DAILY 07/01/21 [History] Lactobacillus Combination No.4 [Probiotic] 1 tab PO DAILY 07/01/21 [History] Omeprazole 1 tab PO DAILY 07/01/21 [History] Pnv No.95/Ferrous Fum/Folic AC [ Vitamins Tablet] 1 tab PO DAILY 07/01/21 [History] Acetaminophen [Tylenol] 650 mg PO Q4H PRN tablet 07/03/21 [Rx] Ibuprofen [Motrin] 600 mg PO Q4H PRN tablet 07/03/21 [Rx] Loratadine [Claritin] 10 mg PO 2000 tablet 07/03/21 [Rx] Referrals: Yvon Painter MD [Primary Care Provider] - (Return to [facility] weeks.) - Discharge Summary/Plan Comment DC Time >30 min.: No Total # of Minutes for Discharge Time: 10 Discharge Summary/Plan Comment: Discharge instructions: 1. Discharge home 2. Diet, activity and follow-up discussed with patient. Recommend nursing diet with increased calories and calcium. 3. Precautions given concern increased pain, bleeding, temperature, signs/symptoms of DVT/PE. 4. Medications per home medication was printed, discussed with and given to the patient. 5. Return to clinic-[facility]. Painter[facility] in 2 weeks. Diagnosis: Term -delivered Condition: Good - Patient Data Vitals - Most Recent: Last Vital Signs Temp 36.7 C 07/03/21 04:12 Pulse 80 07/03/21 04:12 Resp 13 07/03/21 04:12 BP 108/71 07/03/21 04:12 Pulse Ox 97 07/03/21 04:12 Weight - Most Recent: 98.43 kg I&O - Last 24 hours: Intake & Output 07/02/21 07/03/21 07/03/21 22:59 06:59 14:59 Intake Total 180 Balance 180 Lab Results - Last 24 hrs: Laboratory Results - last 24 hr 07/01/21 Range/Units 21:50 RPR Non-reactive (NONREACTIVE) Med Orders - Current: Current Medications Acetaminophen (Acetaminophen 325 Mg Tab) 650 mg PO Q4H PRN PRN Reason: mild pain or fever Last Admin: 07/02/21 21:55 Dose: 650 mg Documented by: Benzocaine/Menthol (Benzocaine/Menthol 20%-0.5% Allen 78 Gm Cannister) 0 gm TOP ASDIRECTED PRN PRN Reason: Perineal Comfort Measure Docusate Sodium (Docusate Sodium 100 Mg Cap) 100 mg PO BID PRN PRN Reason: Constipation Last Admin: 07/02/21 18:23 Dose: 100 mg Documented by: Ibuprofen (Ibuprofen 600 Mg Tab) 600 mg PO Q4H PRN PRN Reason: Mild pain or fever Last Admin: 07/03/21 04:42 Dose: 600 mg Documented by: Levothyroxine Sodium (Levothyroxine 100 Mcg Tab) 100 mcg PO [facility] Last Admin: 07/03/21 00:49 Dose: Not Given Documented by: Loratadine (Loratadine 10 Mg Tab) 10 mg PO [facility] Last Admin: 07/03/21 00:48 Dose: Not Given Documented by: Prenat Multivit/[place]/Iron/Folic Ac ( Multivitamin With Calcium/Folic Acid/Iron Tab) 1 each PO DAILY [facility] Last Admin: 07/02/21 09:01 Dose: Not Given Documented by: Anamaria Urrutia (Anamaria Urrutia Medicated Pads 40/Jar) 1 pad TOP ASDIRECTED PRN PRN Reason: Perineal Comfort Measure Discontinued Medications Bupivacaine HCl (Bupivacaine 0.25% 10 Ml Sdv) 10 ml .ROUTE .STK-MED ONE Stop: 07/02/21 00:01 Diphenhydramine HCl (Diphenhydramine 50 Mg/Ml Sdv) 25 mg IVPUSH Q6H PRN PRN Reason: pruritis Ephedrine Sulfate (Ephedrine 50 Mg/Ml Sdv) 5 mg IVPUSH ASDIRECTED PRN PRN Reason: Hypotension Fentanyl (Fentanyl 100 Mcg/2 Ml Sdv) 100 mcg EPIDUR Q3H PRN PRN Reason: Pain Last Admin: 07/02/21 02:47 Dose: 100 mcg Documented by: Fentanyl/Bupivacaine HCl (Bupivacaine/Fentanyl/Ns 100 Ml Bag) 100 ml EPIDUR ASDIRECTED PRN PRN Reason: Pain Last Admin: 07/02/21 02:48 Dose: 100 ml Documented by: Oxytocin/Lactated Ringer's (Pitocin In Lr 10 Units/1,000 Ml) 10 unit in 1,000 mls @ 100 mls/hr IV .CONTINUOUS CAROL Oxytocin/Lactated Ringer's (Pitocin In Lr 10 Units/1,000 Ml) 10 unit in 1,000 mls @ 12 mls/hr IV TITRATE CAROL; Protocol Last Titration: 07/02/21 04:21 Dose: 10 munits/min, 60 mls/hr Documented by: Lactated Ringer's (Ringers, Lactated) 1,000 mls @ 100 mls/hr IV ASDIRECTED CAROL Last Admin: 07/02/21 03:18 Dose: 100 mls/hr Documented by: Levothyroxine Sodium (Levothyroxine 100 Mcg Tab) 100 mcg PO ACBREAKFAST CAROL Last Admin: 07/02/21 07:53 Dose: Not Given Documented by: Nalbuphine HCl (Nalbuphine 10 Mg/1 Ml Vial) 10 mg IVPUSH Q2H PRN PRN Reason: Pain Sodium Chloride (Sodium Chloride 0.9% 10 Ml Syringe) 10 ml FLUSH ASDIRECTED PRN PRN Reason: Keep Vein Open
--- NOTE | 2021-07-03 07:49 | PCM48HPAN ---
Post Anesthesia Note - EVALUATION WITHIN 48HRS OF ANESTHETIC Vital Signs in Normal Range: Yes Patient Participated in Evaluation: Yes Respiratory Function Stable: Yes Airway Patent: Yes Cardiovascular Function Stable: Yes Hydration Status Stable: Yes Pain Control Satisfactory: Yes Nausea and Vomiting Control Satisfactory: Yes Mental Status Recovered: Yes Vital Signs: Last Vital Signs Temp 36.7 C 07/03/21 04:12 Pulse 80 07/03/21 04:12 Resp 13 07/03/21 04:12 BP 108/71 07/03/21 04:12 Pulse Ox 97 07/03/21 04:12
[2021-07-03] MEDS: Prenatal Multivitamin with Calcium/Folic Acid/Iron Tab PO SCH (09:00)
[2021-07-03] MEDS: Acetaminophen 325 MG Tab PO PRN (09:00)
== END 2021-07-03 13:10 | disposition home or self-care (01) | DRG 807 ==
LOC: JD.OB 05:15 → OBSVTOIN 07-02 05:15 → JD.OB 07-02 05:16
PROVIDERS: ADMIT Obstetrics & Gynecology; ATTEND Obstetrics & Gynecology
PROC: 10E0XZZ Delivery of Products of Conception, External Approach (ICD-10-PCS; principal; 2021-07-02)
PROC: 10907ZC Drainage of Amniotic Fluid, Therapeutic from Products of Conception, Via Natural or Artificial Opening (ICD-10-PCS; 2021-07-02)
PROC: 3E0R3BZ Introduction of Anesthetic Agent into Spinal Canal, Percutaneous Approach (ICD-10-PCS; 2021-07-02)
PROC: 00HU33Z Insertion of Infusion Device into Spinal Canal, Percutaneous Approach (ICD-10-PCS; 2021-07-02)
DX: O99.284 Endocrine, nutritional and metabolic diseases complicating childbirth (principal); Z37.0 Single live birth; O99.02 Anemia complicating childbirth; D64.9 Anemia, unspecified; O99.62 Diseases of the digestive system complicating childbirth; K21.9 Gastro-esophageal reflux disease without esophagitis; Z20.822 Contact with and (suspected) exposure to COVID-19; Z3A.39 39 weeks gestation of pregnancy; Z86.39 Personal history of other endocrine, nutritional and metabolic disease; Z79.890 Hormone replacement therapy
CPT/HCPCS: 01967; 36415; 51702; 59025; 59409; 85025; 86592; 86850; 86900; 86901; A9270-GY; J2590; J3010; J3490; J7120; U0002

== ENCOUNTER 2021-08-28 07:14 | Day surgery (SDC) | payer BC ==
[~2021-08-28 07:14] MED LIST changes: -Bupivacaine 0.25% 10 ML SDV ONE; +Lactated Ringers 1,000 ML IV SCH; +Lidocaine 1%/Sod Bicarbonate in NS 8.4% 1 ML Syringe IDERM PRN; +Sodium Chloride 0.9% 10 ML Syringe FLUSH PRN; +Sodium Chloride 0.9% 10 ML Syringe FLUSH SCH
[2021-08-28] MEDS ORDERED: Midazolam 1 MG/ML 2 ML SDV ONE (07:16)
[2021-08-28] MEDS ORDERED: fentaNYL 250 MCG/5 ML SDV ONE (07:16)
[2021-08-28] MEDS ORDERED: Lidocaine 1% 6 ML ONE (07:20)
[2021-08-28] MEDS ORDERED: Rocuronium 50 MG/5 ML Vial ONE (07:25)
[2021-08-28] MEDS ORDERED: Succinylcholine/Sod PF 100 MG/5 ML SYRINGE IV ONE (07:25)
[2021-08-28] MEDS ORDERED: Bupivacaine 0.5% 30 ML SDV ONE (07:26)
[2021-08-28] MEDS ORDERED: fentaNYL 100 MCG/2 ML SDV IVPUSH PRN (08:07)
[2021-08-28] MEDS ORDERED: HYDROmorphone 0.5 MG/0.5 ML Syringe IVPUSH PRN (08:07)
[2021-08-28] MEDS ORDERED: Dexamethasone 4 MG/ML 5 ML MDV ONE (08:33)
[2021-08-28] MEDS ORDERED: Ondansetron 4 MG/2 ML SDV ONE (08:33)
[2021-08-28] MEDS ORDERED: Lactated Ringers 1,000 ML ONE (08:35)
[2021-08-28] MEDS ORDERED: Ketorolac 30 MG/ML SDV ONE (08:43)
[2021-08-28] MEDS ORDERED: oxyCODONE 5 MG Tab PO ONE (09:22)
== END 2021-08-28 11:40 | disposition home or self-care (01) ==
LOC: JD.SDS 07:14
PROVIDERS: ATTEND Obstetrics & Gynecology
DX: T83.32XA Displacement of intrauterine contraceptive device, initial encounter (principal); E03.9 Hypothyroidism, unspecified; D64.9 Anemia, unspecified; Z79.899 Other long term (current) drug therapy; Z98.890 Other specified postprocedural states
CPT/HCPCS: 49329; 81025; A9270; J0330; J1100; J1885; J2250; J2405; J2710; J3010; J3490; J7120; 00952